=== PATIENT | female | born 1965 | race Caucasian/White ===

== ENCOUNTER 2017-09-19 21:30 | Emergency (ER) | payer OTHER, MEDICAID ==
[2011-10-19 08:31] VITALS: BMI 22.3
[2017-09-19 22:26] LABS: APPEARANCE HAZY (CLEAR); BILIRUBIN NEGATIVE (NEGATIVE); COLOR YELLOW (YELLOW); GLUCOSE NEGATIVE (NEGATIVE); KETONE NEGATIVE (NEGATIVE); NITRITE NEGATIVE (NEGATIVE); PROTEIN NEGATIVE (NEGATIVE); UROBILINOGEN NORMAL (NORMAL)
[2017-09-19 22:27] LABS: BACTERIA FEW /hpf (NONE SEEN); EPITHELIAL CELLS 0-5 /hpf (0-5); RED CELLS - URINE NONE SEEN /hpf (0-5)
[2017-09-19 22:37] LABS: BASOPHILS 0.3 % (0-2); EOSINOPHILS 1.9 % (0-7); HEMATOCRIT 29.8 % (36.0-48.0); HEMOGLOBIN 10.6 g/dL (12-16); IMMATURE GRANULOCYTES 0.3 % (0-5); LYMPHOCYTES 16.3 % (15-50); MCH 32.4 pg (26.0-34.0); MCHC 35.6 g/dL (31.0-37.0); MCV 91.1 fL (80.0-100.0); MEAN PLATELET VOLUME 9.3 fL (7.4-10.4); MONOCYTES 7.9 % (2-11); NEUTROPHILS 73.3 % (40-80); PLATELET COUNT 165 10x3/uL (130-400); RBC 3.27 10x6/uL (4.00-5.40); RDW 11.9 % (11.5-14.5); WBC 3.7 10x3/uL (4.8-10.8)
[2017-09-19 22:47] LABS: HELICOBACTER PYLORI IGG NEGATIVE (NEGATIVE)
[2017-09-19 22:56] LABS: ALBUMIN 3.7 g/dL (3.4-5.0); ANION GAP 12.2 mmol/L (8-16); BILIRUBIN - TOTAL 0.73 mg/dL (0.2-1.3); CALCIUM 8.6 mg/dL (8.5-10.1); CARBON DIOXIDE 26.7 mmol/L (21.0-32.0); CREATININE - SERUM 0.9 mg/dL (0.6-1.3); POTASSIUM - SERUM 3.9 mmol/L (3.5-5.1); PROTEIN - SERUM 6.6 g/dL (6.4-8.2)
== END 2017-09-20 00:10 | disposition home or self-care (01) ==
LOC: D.ER 21:30
PROVIDERS: Family Medicine; Physician Assistant Medical
DX: N39.0 Urinary tract infection, site not specified (principal); F17.200 Nicotine dependence, unspecified, uncomplicated